=== PATIENT | female | born 1955 | race Caucasian/White ===

== ENCOUNTER 2017-02-15 08:07 | Outpatient (CLI) | payer OTHER, BC | END 2017-02-15 08:08 | disposition home or self-care (01) | DX: K58.9 Irritable bowel syndrome, unspecified (principal); R11.0 Nausea; R19.4 Change in bowel habit; Z90.49 Acquired absence of other specified parts of digestive tract ==

== ENCOUNTER 2017-02-22 18:13 | Outpatient (CLI) | payer OTHER, BC | END 2017-02-22 18:14 | disposition home or self-care (01) | DX: K58.9 Irritable bowel syndrome, unspecified (principal); R11.0 Nausea; R19.4 Change in bowel habit ==

== ENCOUNTER 2017-08-08 08:00 | Outpatient (CLI) | payer OTHER, BC ==
[2017-08-08 13:05] LABS: BASOPHILS % (AUTO) 0.6 %; EOSINOPHILS # (AUTO) 0.3 10^3/uL (0.0-0.7); EOSINOPHILS % (AUTO) 4.1 %; HCT - HEMATOCRIT 38.9 % (37.0-47.0); HGB - HEMOGLOBIN 13.1 g/dL (12.0-16.0); LYMPHOCYTES # (AUTO) 2.4 10^3/uL (1.5-3.5); LYMPHOCYTES % (AUTO) 33.9 %; MEAN CORPUSCULAR HEMOGLOBIN 31.1 pg (27.0-31.0); MEAN CORPUSCULAR HGB CONC 33.7 g/dL (32.0-36.0); MEAN CORPUSCULAR VOLUME 92.4 fL (81.0-99.0); MEAN PLATELET VOLUME 7.8 fL (7.9-10.8); MONOCYTES # (AUTO) 0.5 10^3/uL (0.0-1.0); MONOCYTES % (AUTO) 7.7 %; NEUTROPHILS # (AUTO) 3.8 10^3/uL (1.5-6.6); NEUTROPHILS % (AUTO) 53.7 %; NUCLEATED RED BLOOD CELLS AUTO 0.1 /100WBC; RED BLOOD COUNT 4.21 10^6/uL (4.20-5.40); RED CELL DISTRIBUTION WIDTH 12.8 % (12.0-15.0); UNCORRECTED WHITE BLOOD COUNT 7.1 x10^3/uL; WHITE BLOOD COUNT 7.1 x10^3/uL (4.8-10.8)
[2017-08-08 13:13] LABS: ALBUMIN/GLOBULIN RATIO 1.3 (1.0-2.2); BILIRUBIN,TOTAL 0.5 mg/dL (0.2-1.0); BUN - BLOOD UREA NITROGEN 14 mg/dL (6-20); CALCIUM 9.7 mg/dL (8.5-10.3); CARBON DIOXIDE - CO2 28 mmol/L (21-32); CHLORIDE 103 mmol/L (101-111); CHOL/HDL RATIO 3.2 (<4.4); CHOLESTEROL 224 mg/dL; CREATININE 0.7 mg/dL (0.4-1.0); GFR - MDRD 85 (>89); GLUCOSE 99 mg/dL (70-100); HDL CHOLESTEROL 69 mg/dL; LDL/HDL RATIO 1.6 (<4.4); POTASSIUM 4.3 mmol/L (3.5-5.0); SODIUM 138 mmol/L (135-145); TOTAL PROTEIN 7.4 g/dL (6.7-8.2); TRIGLYCERIDES 221 mg/dL; VLDL CHOLESTEROL 44 mg/dL
[2017-08-08 13:15] LABS: HEMOGLOBIN A1C 0.5 g/dL
== END 2017-08-08 08:01 | disposition home or self-care (01) ==
LOC: LAB.WCP 08:00
PROVIDERS: ATTEND Family Medicine
DX: Z00.00 Encounter for general adult medical examination without abnormal findings (principal); E78.5 Hyperlipidemia, unspecified; E03.9 Hypothyroidism, unspecified; K21.9 Gastro-esophageal reflux disease without esophagitis
CPT/HCPCS: 36415; 80053; 80061; 83036; 84443; 85025

== ENCOUNTER 2017-09-27 09:24 | Outpatient (CLI) | payer OTHER, BC ==
--- NOTE | 2017-09-29 11:35 | Mammography Report ---
DIGITAL SCREENING MAMMOGRAM: 09/27/2017 CLINICAL INDICATION: A 62-year-old, for screening. COMPARISON: 09/2016, 08/2016, 08/2015, 08/2014, 08/2013, 06/2012, 05/2011, 05/2010. TECHNIQUE: Routine CC and MLO projections were obtained of the breasts. FINDINGS: Scattered fibroglandular tissue is present within the breasts. There are no dominant song s, suspicious microcalcifications, or secondary signs of malignancy. In comparison to the previous st udies, there are no significant changes. ASSESSMENT: NO MAMMOGRAPHIC EVIDENCE OF MALIGNANCY. NO SIGNIFICANT INTERVAL CHANGES. RECOMMENDATION: Screening mammography is recommended annually. BIRADS category 1 - negative. STANDARD QUALIFYING STATEMENTS 1. This examination was reviewed with the aid of Computed-Aided Detection (CAD). 2. A negative or benign imaging report should not delay biopsy if clinically suspicious findings are present. Consider surgical consultation if warranted. More than 5% of cancers are not identified by i maging. 3. Dense breasts may obscure an underlying neoplasm. JOB #: [id number] EXT JOB #:[id number]
== END 2017-09-27 09:25 | disposition home or self-care (01) ==
LOC: DI 09:24
PROVIDERS: ATTEND Family Medicine
DX: Z12.31 Encounter for screening mammogram for malignant neoplasm of breast (principal)
CPT/HCPCS: 77067

== ENCOUNTER 2017-12-27 13:56 | Outpatient (CLI) | payer OTHER, BC ==
[2017-12-27 19:01] LABS: BASOPHILS # (AUTO) 0.1 10^3/uL (0.0-0.1); BASOPHILS % (AUTO) 0.7 %; EOSINOPHILS # (AUTO) 0.2 10^3/uL (0.0-0.7); EOSINOPHILS % (AUTO) 2.7 %; HGB - HEMOGLOBIN 12.1 g/dL (12.0-16.0); LYMPHOCYTES # (AUTO) 2.2 10^3/uL (1.5-3.5); LYMPHOCYTES % (AUTO) 28.2 %; MEAN CORPUSCULAR HEMOGLOBIN 30.6 pg (27.0-31.0); MEAN CORPUSCULAR HGB CONC 33.7 g/dL (32.0-36.0); MEAN CORPUSCULAR VOLUME 90.7 fL (81.0-99.0); MEAN PLATELET VOLUME 7.9 fL (7.9-10.8); MONOCYTES # (AUTO) 0.7 10^3/uL (0.0-1.0); NEUTROPHILS # (AUTO) 4.5 10^3/uL (1.5-6.6); NEUTROPHILS % (AUTO) 59.4 %; PLT - PLATELET COUNT 315 10^3/uL (130-450); RED BLOOD COUNT 3.96 10^6/uL (4.20-5.40); RED CELL DISTRIBUTION WIDTH 13.1 % (12.0-15.0); WHITE BLOOD COUNT 7.6 x10^3/uL (4.8-10.8)
[2017-12-27 19:21] LABS: ALBUMIN 3.9 g/dL (3.2-5.5); ALBUMIN/GLOBULIN RATIO 1.3 (1.0-2.2); ALKALINE PHOSPHATASE 54 IU/L (42-121); ALT ALANINE AMINOTRANSFERASE 20 IU/L (10-60); AST ASPARTATE AMINOTRANSFERASE 24 IU/L (10-42); BILIRUBIN,TOTAL 0.3 mg/dL (0.2-1.0); BUN - BLOOD UREA NITROGEN 17 mg/dL (6-20); CALCIUM 9.6 mg/dL (8.5-10.3); CARBON DIOXIDE - CO2 25 mmol/L (21-32); CHLORIDE 102 mmol/L (101-111); CHOL/HDL RATIO 3.4 (<4.4); CHOLESTEROL 222 mg/dL; CREATININE 0.7 mg/dL (0.4-1.0); GFR - MDRD 85 (>89); GLUCOSE 91 mg/dL (70-100); HDL CHOLESTEROL 66 mg/dL; SODIUM 137 mmol/L (135-145)
[2017-12-27 19:48] LABS: LDL CHOLESTEROL,DIRECT 117 mg/dL; LDLD/HDL RATIO 1.8 (<4.4)
== END 2017-12-27 13:57 | disposition home or self-care (01) ==
LOC: LAB.WCP 13:56
PROVIDERS: ATTEND Family Medicine
DX: K58.9 Irritable bowel syndrome, unspecified (principal); K21.9 Gastro-esophageal reflux disease without esophagitis; F33.1 Major depressive disorder, recurrent, moderate; E78.5 Hyperlipidemia, unspecified; E03.9 Hypothyroidism, unspecified
CPT/HCPCS: 36415; 80053; 80061; 83721; 84443; 85025

== ENCOUNTER 2018-04-04 08:09 | Outpatient (CLI) | payer OTHER, BC ==
[2018-04-04 13:24] LABS: ALBUMIN 3.9 g/dL (3.2-5.5); ALBUMIN/GLOBULIN RATIO 1.3 (1.0-2.2); ALKALINE PHOSPHATASE 43 IU/L (42-121); ALT ALANINE AMINOTRANSFERASE 25 IU/L (10-60); AST ASPARTATE AMINOTRANSFERASE 33 IU/L (10-42); BILIRUBIN,TOTAL 0.6 mg/dL (0.2-1.0); BUN - BLOOD UREA NITROGEN 21 mg/dL (6-20); CALCIUM 9.1 mg/dL (8.5-10.3); CARBON DIOXIDE - CO2 26 mmol/L (21-32); CHLORIDE 101 mmol/L (101-111); CHOL/HDL RATIO 3.4 (<4.4); CHOLESTEROL 188 mg/dL; CREATININE 0.8 mg/dL (0.4-1.0); GFR - MDRD 72 (>89); GLUCOSE 98 mg/dL (70-100); HDL CHOLESTEROL 55 mg/dL; LDL CHOLESTEROL,CALCULATED 97 mg/dL; LDL/HDL RATIO 1.8 (<4.4); SODIUM 134 mmol/L (135-145); TOTAL PROTEIN 6.9 g/dL (6.7-8.2); VLDL CHOLESTEROL 36 mg/dL
== END 2018-04-04 08:10 ==
LOC: LAB.WCP 08:09
PROVIDERS: ATTEND Family Medicine
DX: E78.5 Hyperlipidemia, unspecified (principal)
CPT/HCPCS: 36415; 80053; 80061; 83721

== ENCOUNTER 2018-05-04 08:00 | Outpatient (CLI) | payer OTHER, BC | END 2018-05-04 23:59 | disposition home or self-care (01) | LOC: LAB.WCP 08:00 | PROVIDERS: ATTEND Family Medicine | DX: N89.8 Other specified noninflammatory disorders of vagina (principal) | CPT/HCPCS: 87480; 87510; 87660 ==

== ENCOUNTER 2018-10-18 08:00 | Outpatient (CLI) | payer OTHER, BC ==
[2018-10-18 13:37] LABS: ALBUMIN 3.9 g/dL (3.2-5.5); ALBUMIN/GLOBULIN RATIO 1.3 (1.0-2.2); ALKALINE PHOSPHATASE 61 IU/L (42-121); ALT ALANINE AMINOTRANSFERASE 20 IU/L (10-60); AST ASPARTATE AMINOTRANSFERASE 22 IU/L (10-42); BILIRUBIN,TOTAL 0.2 mg/dL (0.2-1.0); BUN - BLOOD UREA NITROGEN 22 mg/dL (6-20); CALCIUM 9.2 mg/dL (8.5-10.3); CARBON DIOXIDE - CO2 28 mmol/L (21-32); CHLORIDE 101 mmol/L (101-111); CHOL/HDL RATIO 3.5 (<4.4); CHOLESTEROL 224 mg/dL; CREATININE 0.8 mg/dL (0.4-1.0); GFR - MDRD 72 (>89); GLUCOSE 92 mg/dL (70-100); HDL CHOLESTEROL 64 mg/dL; LDL CHOLESTEROL,CALCULATED 108 mg/dL; LDL/HDL RATIO 1.7 (<4.4); SODIUM 138 mmol/L (135-145); VLDL CHOLESTEROL 52 mg/dL
== END 2018-10-18 23:59 | disposition home or self-care (01) ==
LOC: LAB.WCP 08:00
PROVIDERS: ATTEND Family Medicine
DX: E78.5 Hyperlipidemia, unspecified (principal); E03.9 Hypothyroidism, unspecified
CPT/HCPCS: 36415; 80053; 80061; 83721; 84443

== ENCOUNTER 2018-11-26 09:45 | Outpatient (CLI) | payer OTHER, BC ==
--- NOTE | 2018-11-27 09:09 | Mammography Report ---
Reason: SCREENING MAMMO Procedure Date: 11/26/2018 Accession Number: [id number] / [id number] Procedure: CONCHA - Screening Mammo w/Jonn CPT Code: FULL RESULT: EXAM: Screening Mammo w/Jonn DATE: 11/26/2018 10:28 AM CLINICAL HISTORY: Screening encounter. History of early menses and history of 15 years of hormone therapy. Family history of breast cancer in a great aunt at unknown age. TECHNIQUE: Bilateral CC and MLO views were obtained. COMPARISON: 09/27/2017 through 08/21/2014. FINDINGS: The breasts demonstrate scattered fibroglandular densities bilaterally. There are typically benign coarse calcifications. No suspicious masses, clustered microcalcifications, or regions of architectural distortion are identified. IMPRESSION: Benign findings RECOMMENDATION: Routine annual screening unless otherwise clinically indicated. BIRADS CATEGORY 2: Benign findings STANDARD QUALIFYING STATEMENTS: 1. This examination was not reviewed with the aid of Computer-Aided Detection (CAD). 2. A negative or benign imaging report should not preclude biopsy if clinically suspicious findings are present. 3. Dense breasts may obscure an underlying neoplasm. 4. This examination was reviewed with the aid of 3D breast imaging (tomosynthesis).
== END 2018-11-26 09:46 | disposition home or self-care (01) ==
LOC: DI 09:45
DX: Z12.31 Encounter for screening mammogram for malignant neoplasm of breast (principal); Z80.3 Family history of malignant neoplasm of breast
CPT/HCPCS: 77063; 77067

== ENCOUNTER 2018-11-26 09:46 | Outpatient (CLI) | payer OTHER, BC ==
--- NOTE | 2018-11-28 08:28 | DEXA Report ---
Reason: POSTMENOPAUSAL STATUS Procedure Date: 11/26/2018 Accession Number: [id number] / [id number] Procedure: DEX - Dexa Spine and/or Hip CPT Code: FULL RESULT: EXAM: Dexa Spine and/or Hip DATE: 11/26/2018 10:41 AM CLINICAL HISTORY: POSTMENOPAUSAL STATUS TECHNIQUE: Dual energy x-ray absorptiometry (DXA) was performed on a [employer] System. Regions measured are the AP Spine, femoral neck, and if needed forearm. COMPARISON: 08/25/2016. In accordance with the International Society for Clinical Densitometry (ISCD) guidelines, data from previous exams may be reanalyzed using current recommendations and techniques. This is done to allow a more accurate basis for comparison with the current study. FINDINGS: The data for the lumbar spine is as follows: BMD (g/cm/cm) T-SCORE Z-SCORE REGION L1 0.992 -1.1 0.1 L2 1.161 -0.3 1.0 L3 1.083 -1.0 0.3 L4 1.094 -0.9 0.4 TOTAL 1.086 -0.8 0.5 NOTE: All evaluable vertebrae are used for classification The data for the hip is as follows: BMD (g/cm/cm) T-SCORE Z-SCORE REGION Neck 0.831 -1.5 -0.2 TOTAL 0.883 -1.0 0.0 NOTE: The femoral neck or total proximal femur, whichever is lowest, is used for classification. DXA RESULTS SUMMARY: Spine SCAN DATE AGE BMD CHANGE VS CHANGE VS PREVIOUS PREVIOUS % 7/26[birth year]2019 [age] 1.086 -0.002 -0.2 09/02/2016 [age] 1.088 * Denotes significant change at the 95% confidence level. Denotes dissimilar scan types or analysis methods. DXA RESULTS SUMMARY: Hip SCAN DATE AGE BMD CHANGE VS CHANGE VS PREVIOUS PREVIOUS % [birth year]26/2018 64.8 0.883 0.036* 4.3* 09/02/2016 61.6 0.847 * Denotes significant change at the 95% confidence level. Denotes dissimilar scan types or analysis methods. IMPRESSION: THE WHO CLASSIFICATION BASED ON THE INTERNATIONAL REFERENCE STANDARD IS OSTEOPENIA. THE FRACTURE RISK IS INCREASED. RECOMMENDATION: Patients with diagnosis of osteoporosis or osteopenia should have regular bone mineral density assessment. For those eligible for Medicare, routine testing is allowed once every 2 years. Testing frequency can be increased for patients who have rapidly progressing disease or for those who are receiving medical therapy to restore bone mass. COMMENT: World Health Organization (WHO) definitions for osteoporosis and osteopenia: NORMAL BMD: T-score at -1.0 or higher, fracture risk is low OSTEOPENIA BMD: T-score between -1.0 and -2.5, fracture risk is increased. OSTEOPOROSIS BMD: T-score at -2.5 or lower, fracture risk is high. National Osteoporosis Foundation recommends: 1. Obtain adequate dietary calcium (at least 1200 mg per day) and vitamin D (400-800 international units per day). 2. Participate, as appropriate, in regular weightbearing and muscle-strengthening exercise. 3. Avoid tobacco use and reduce alcohol and caffeine intake. 4. For more detailed information see the website at www.NOF.org.
== END 2018-11-26 09:47 | disposition home or self-care (01) ==
LOC: DI 09:46
PROVIDERS: ATTEND Family Medicine
DX: M85.88 Other specified disorders of bone density and structure, other site (principal)
CPT/HCPCS: 77080

== ENCOUNTER 2019-01-31 08:28 | Outpatient (CLI) | payer OTHER ==
--- NOTE | 2019-01-31 11:23 | XRAY Report ---
Reason: PAIN MEDIAL L FOOT Procedure Date: 01/31/2019 Accession Number: [id number] / [id number] Procedure: XR - Foot 3 View LT CPT Code: FULL RESULT: EXAM: LEFT FOOT RADIOGRAPHY EXAM DATE: 01/31/2019 08:55 AM. CLINICAL HISTORY: Pain in medial left foot. COMPARISON: FOOT 2 VIEW LT 02/15/2018 2:21 PM. TECHNIQUE: 3 views. FINDINGS: Bones: Normal. No fractures or bone lesions. Joints: Normal. No subluxations. Soft Tissues: Normal. No soft tissue swelling. IMPRESSION: No fracture or dislocation is detected. RADIA
== END 2019-01-31 08:29 | disposition home or self-care (01) ==
LOC: DI 08:28
PROVIDERS: ATTEND Podiatrist
DX: M79.672 Pain in left foot (principal)

== ENCOUNTER 2019-04-24 08:00 | Outpatient (CLI) | payer OTHER ==
[2019-04-24 18:53] LABS: CREATININE 0.8 mg/dL (0.4-1.0)
== END 2019-04-24 08:01 | disposition home or self-care (01) ==
LOC: LAB.WCP 08:00
PROVIDERS: ATTEND Anesthesiology
DX: Z01.812 Encounter for preprocedural laboratory examination (principal)
CPT/HCPCS: 36415; 82565; 85014

== ENCOUNTER 2019-05-10 18:44 | Emergency (ER) | payer OTHER ==
[2019-05-10 18:52] VITALS: BP 127/74
[2019-05-10] MEDS ORDERED: FLUCONAZOLE 100 MG TABLET PO STA (19:09)
--- NOTE | 2019-05-10 19:12 | ED Physician Documentation ---
History of Present Illness - Stated complaint Stated Complaint: RASH - Chief complaint Chief Complaint: General - History obtained from History obtained from: Patient - History of Present Illness Timing: Other (She is about a week out from a laparoscopic Lorenzo fundoplication and has increasing redness and severe itching around her port sites on the abdominal wall. This is despite taking a variety of topical corticosteroids and nystatin.) Review of Systems Constitutional: reports: Reviewed and negative Throat: reports: Reviewed and negative Cardiac: reports: Reviewed and negative PD PAST MEDICAL HISTORY - Past Medical History Cardiovascular: Hypertension, High cholesterol Psych: Anxiety - Past Surgical History Past Surgical History: Yes Ortho: Hip replacement - Present Medications Home Medications: Ambulatory Orders Medication Instructions Recorded Confirmed Acetaminophen [Tylenol Extra 1,000 mg PO TID 09/14/15 09/14/15 Strength] Ascorbic Acid [Vitamin C] 500 mg PO DAILY 09/14/15 09/14/15 Calcium Carb/D3/Magnesium/Zinc 1 tab PO DAILY 09/14/15 09/14/15 [Fidencio Mag Zinc + D3 Tablet] Cholecalciferol (Vitamin D3) 5,000 unit PO DAILY 09/14/15 09/14/15 [Vitamin D3] Citalopram Hydrobromide [Celexa] 15 mg PO DAILY 09/14/15 09/14/15 Estradiol 1 mg PO DAILY 09/14/15 09/14/15 Iron Bg,Ps/Folic/B,C No.12/Suc 1 tab PO DAILY 09/14/15 09/14/15 [Irospan 24/6 Tablet] L.acidoph,Paracasei, B.lactis 1 each PO 09/14/15 09/14/15 [Probiotic] Lovastatin 40 mg PO DAILY 09/14/15 09/14/15 Magnesium Glycinate [Mag Glycinate] 1 tab PO DAILY 09/14/15 09/14/15 Methylphenidate [Ritalin] 2.5 mg PO DAILY 09/14/15 09/14/15 [place]-3 Fatty Acids/Fish Oil 1 tape PO DAILY 09/14/15 09/14/15 [[place] 3 1,000 mg Softgel] Prazosin [Minipress] 1 mg PO QPM 09/14/15 09/14/15 QUEtiapine [SEROquel] 50 mg PO DAILY 09/14/15 09/14/15 predniSONE [Deltasone] 20 mg PO [id number] #21 tab 05/10/19 - Allergies Allergies/Adverse Reactions: Allergies Allergy/AdvReac Type Severity Reaction Status Date / Time Penicillins Allergy Rash Verified 09/13/15 23:43 - Social History Does the pt smoke?: No Smoking Status: Never smoker Does the pt drink ETOH?: No Does the pt have substance abuse?: No - Immunizations Immunizations are current?: Yes PD ED PE NORMAL - Vitals Vital signs reviewed: Yes - General General: Alert and oriented X 3, No acute distress - Abdomen Abdomen: Non tender, Other (There is redness around each port site with satellite lesions more consistent with either a fungal infection or contact dermatitis. She has already removed the Steri-Strips. There are some also some satellite lesions under the breast especially the left.) Results - Vitals Vitals: Vital Signs - 24 hr 05/10/19 18:47 Temperature 36.5 C Heart Rate 100 Respiratory 16 Rate Blood Pressure 127/74 O2 Saturation 100 Oxygen O2 Source Room air Departure - Departure Disposition: 01 Home, Self Care Clinical Impression: Dermatitis Condition: Good Record reviewed to determine appropriate education?: Yes Health Concerns: rash Plan of Treatment: as below Care Goals: improvement Assessment: as above Instructions: ED Allergic Reaction General Other Prescriptions: predniSONE [Deltasone] 20 mg PO [id number] #21 tab Comments: The fluconazole she received orally here should help if this is fungal which it may well be. The oral steroids that you are to start tomorrow to decrease any insomnia tonight should help with the inflammatory reaction. Return if worse.
== END 2019-05-10 19:19 | disposition home or self-care (01) ==
LOC: ED 18:44
DX: L30.9 Dermatitis, unspecified (principal); I10 Essential (primary) hypertension
CPT/HCPCS: 99283; A9270

== ENCOUNTER 2019-07-22 08:00 | Outpatient (CLI) | payer OTHER | END 2019-07-22 23:59 | disposition home or self-care (01) | LOC: LAB.R 08:00 | PROVIDERS: ATTEND Physician Assistant Medical | DX: R10.9 Unspecified abdominal pain (principal) | CPT/HCPCS: 87086 ==

== ENCOUNTER 2019-07-22 14:57 | Outpatient (CLI) | payer OTHER ==
--- NOTE | 2019-07-22 16:07 | CT Report ---
Reason: HEMATURIA Procedure Date: 07/22/2019 Accession Number: [id number] / [id number] Procedure: CT - Abdomen/Pelvis WO CPT Code: FULL RESULT: EXAM: CT ABDOMEN AND PELVIS (CT KUB) EXAM DATE: 07/22/2019 03:07 PM. CLINICAL HISTORY: HEMATURIA. COMPARISONS: None. TECHNIQUE: Routine axial helical CT imaging was performed through the abdomen and pelvis without IV contrast. Reconstructions: Coronal and sagittal. In accordance with CT protocol optimization, one or more of the following dose reduction techniques were utilized for this exam: automated exposure control, adjustment of mA and/or KV based on patient size, or use of iterative reconstructive technique. FINDINGS: Lung Bases: A small hiatal hernia. Right Kidney/Ureter: No stones, hydronephrosis, or hydroureter. No perinephric fat stranding. Left Kidney/Ureter: No stones, hydronephrosis, or hydroureter. No perinephric fat stranding. Other Solid Organs: Noncontrast images of the solid organs are grossly unremarkable. Gallbladder/Bile Ducts: Status post cholecystectomy. Peritoneal Cavity: No free fluid, free air or brenton adenopathy. Bowel is grossly unremarkable. Pelvic Organs: No bladder stones or wall thickening. Noncontrast images of the visualized pelvic organs are unremarkable. Vasculature: Unremarkable. Other: None. IMPRESSION: No urinary tract stones or obstruction. Small hiatal hernia. Status post cholecystectomy. No other significant abnormality. RADIA The call report notification system was initiated by Dr. Rebecca Mcginnis at 04:05 PM on 07/22/2019. ADDENDUM: 07/22/19 16:37 The above call report findings were discussed with RN for dr Bolaños by Dr. Rebecca Mcginnis at 04:37 PM on 07/22/2019.
== END 2019-07-22 14:58 | disposition home or self-care (01) ==
LOC: DI 14:57
PROVIDERS: ATTEND Physician Assistant Medical
DX: R31.9 Hematuria, unspecified (principal); K44.9 Diaphragmatic hernia without obstruction or gangrene; Z90.49 Acquired absence of other specified parts of digestive tract; R10.9 Unspecified abdominal pain
CPT/HCPCS: 74176; 87086

== ENCOUNTER 2019-09-11 12:00 | Outpatient (CLI) | payer OTHER ==
[2019-09-11 20:09] LABS: BILIRUBIN,URINE NEGATIVE (NEGATIVE); GLUCOSE, URINE (UA) NEGATIVE (NEGATIVE); KETONES,URINE (UA) NEGATIVE (NEGATIVE); LEUKOCYTE ESTERASE, URINE NEGATIVE (NEGATIVE); NITRITE,URINE NEGATIVE (NEGATIVE); OCCULT BLOOD,URINE NEGATIVE (NEGATIVE); PROTEIN,URINE NEGATIVE (NEGATIVE); UROBILINOGEN,URINE 0.2 (NORMAL) E.U./dL (NORMAL)
[2019-09-11 20:17] LABS: CLARITY,URINE CLEAR (CLEAR)
== END 2019-09-11 23:59 | disposition home or self-care (01) ==
LOC: LAB.R 12:00
PROVIDERS: ATTEND Physician Assistant Medical
DX: R31.9 Hematuria, unspecified (principal)
CPT/HCPCS: 81001; 81003; 87086

== ENCOUNTER 2019-10-22 08:00 | Outpatient (CLI) | payer OTHER ==
[2019-10-22 14:41] LABS: ALBUMIN 3.8 g/dL (3.2-5.5); ALBUMIN/GLOBULIN RATIO 1.2 (1.0-2.2); ALKALINE PHOSPHATASE 50 IU/L (42-121); ALT ALANINE AMINOTRANSFERASE 23 IU/L (10-60); AST ASPARTATE AMINOTRANSFERASE 30 IU/L (10-42); BILIRUBIN,TOTAL 0.6 mg/dL (0.2-1.0); BILIRUBIN,URINE NEGATIVE (NEGATIVE); BUN - BLOOD UREA NITROGEN 17 mg/dL (6-20); CALCIUM 9.2 mg/dL (8.5-10.3); CARBON DIOXIDE - CO2 24 mmol/L (21-32); CHLORIDE 104 mmol/L (101-111); CHOL/HDL RATIO 3.1 (<4.4); CHOLESTEROL 195 mg/dL; CLARITY,URINE CLEAR (CLEAR); CREATININE 0.8 mg/dL (0.4-1.0); GFR - MDRD 72 (>89); GLUCOSE 97 mg/dL (70-100); GLUCOSE, URINE (UA) NEGATIVE (NEGATIVE); HDL CHOLESTEROL 63 mg/dL; KETONES,URINE (UA) NEGATIVE (NEGATIVE); LDL CHOLESTEROL,CALCULATED 81 mg/dL; LDL/HDL RATIO 1.3 (<4.4); LEUKOCYTE ESTERASE, URINE NEGATIVE (NEGATIVE); NITRITE,URINE NEGATIVE (NEGATIVE); OCCULT BLOOD,URINE TRACE-INTA (NEGATIVE); PROTEIN,URINE NEGATIVE (NEGATIVE); SODIUM 139 mmol/L (135-145); TOTAL PROTEIN 7.1 g/dL (6.7-8.2); UROBILINOGEN,URINE 0.2 (NORMAL) E.U./dL (NORMAL); VLDL CHOLESTEROL 51 mg/dL
[2019-10-22 15:07] LABS: BASOPHILS # (AUTO) 0.1 10^3/uL (0.0-0.1); BASOPHILS % (AUTO) 0.9 %; EOSINOPHILS # (AUTO) 0.6 10^3/uL (0.0-0.7); EOSINOPHILS % (AUTO) 7.5 %; HGB - HEMOGLOBIN 11.8 g/dL (12.0-16.0); LYMPHOCYTES # (AUTO) 2.6 10^3/uL (1.5-3.5); LYMPHOCYTES % (AUTO) 31.8 %; MEAN CORPUSCULAR HEMOGLOBIN 30.4 pg (27.0-31.0); MEAN CORPUSCULAR HGB CONC 32.4 g/dL (32.0-36.0); MEAN CORPUSCULAR VOLUME 93.8 fL (81.0-99.0); MEAN PLATELET VOLUME 9.6 fL (7.9-10.8); MONOCYTES # (AUTO) 0.7 10^3/uL (0.0-1.0); MONOCYTES % (AUTO) 8.2 %; NEUTROPHILS # (AUTO) 4.2 10^3/uL (1.5-6.6); NEUTROPHILS % (AUTO) 50.6 %; PLT - PLATELET COUNT 325 10^3/uL (130-450); RED BLOOD COUNT 3.88 10^6/uL (4.20-5.40); RED CELL DISTRIBUTION WIDTH 13.1 % (12.0-15.0); WHITE BLOOD COUNT 8.2 x10^3/uL (4.8-10.8)
== END 2019-10-22 23:59 | disposition home or self-care (01) ==
LOC: LAB.WCP 08:00
PROVIDERS: ATTEND Physician Assistant Medical
DX: E78.5 Hyperlipidemia, unspecified (principal); R31.9 Hematuria, unspecified; K21.9 Gastro-esophageal reflux disease without esophagitis
CPT/HCPCS: 36415; 80053; 80061; 81001; 81003; 83721; 85025; 87086

== ENCOUNTER 2020-01-10 16:32 | Outpatient (CLI) | payer OTHER ==
--- NOTE | 2020-01-13 09:04 | Mammography Report ---
Reason: ROUTINE MAMMO Procedure Date: 01/10/2020 Accession Number: [id number] / [id number] Procedure: CONCHA - Screening Mammo w/Jonn CPT Code: Final Report FULL RESULT: EXAM: Screening Mammo w/Jonn DATE: 01/10/2020 5:00 PM CLINICAL HISTORY: Screening encounter. TECHNIQUE: (B) - Bilateral CC and MLO views were obtained. COMPARISON: 11/26/2018 through 05/17/2010. PARENCHYMAL PATTERN: (D) - The breast(s) demonstrate(s) heterogeneously dense fibroglandular parenchyma. FINDINGS: There are no suspicious masses, calcifications, or areas of distortion. IMPRESSION: Negative examination. BI-RADS category 1. RECOMMENDATION: (ANNUAL) - Recommend routine annual screening mammography. BI-RADS CATEGORY: (1) - Negative. STANDARD QUALIFYING STATEMENTS: 1. This examination was not reviewed with the aid of Computer-Aided Detection (CAD). 2. A negative or benign imaging report should not preclude biopsy if clinically suspicious findings are present. 3. Dense breasts may obscure an underlying neoplasm. 4. This examination was reviewed with the aid of 3D breast imaging (tomosynthesis).
== END 2020-01-10 16:33 | disposition home or self-care (01) ==
LOC: DI 16:32
DX: Z12.31 Encounter for screening mammogram for malignant neoplasm of breast (principal)
CPT/HCPCS: 77063; 77067

== ENCOUNTER 2020-07-02 09:40 | Outpatient (CLI) | payer OTHER ==
--- NOTE | 2020-07-02 09:53 | XRAY Report ---
PROCEDURE: Shoulder 3 View RT INDICATIONS: RIGHT SHOULDER IMPINGEMENT SYNDROME TECHNIQUE: 3 views of the shoulder were acquired. COMPARISON: None. FINDINGS: Bones: No fractures or dislocations but there is moderate AC joint osteoarthritis. No suspicious sven ny lesions. Visualized ribs appear intact. Soft tissues: No suspicious soft tissue calcifications. IMPRESSION: Moderate AC joint osteoarthritis to the degree that impingement against the supraspinatu s portion of the rotator cuff may be present, from both osseous and fibrous hypertrophy. MR scanning could more accurately assess for degree of impingement if clinically warranted. Reviewed by: Alan Potter MD on 07/02/2020 9:51 AM PDT Approved by: Alan Potter MD on 07/02/2020 9:51 AM PDT Station ID: [id number]
== END 2020-07-02 23:59 | disposition home or self-care (01) ==
LOC: DI.WCP 09:40
PROVIDERS: ATTEND Physician Assistant Medical
DX: M19.011 Primary osteoarthritis, right shoulder (principal)

== ENCOUNTER 2020-07-24 17:08 | Outpatient (CLI) | payer OTHER ==
--- NOTE | 2020-07-27 09:45 | MRI Report ---
PROCEDURE: Shoulder RT W/O INDICATIONS: IMPINGEMENT SYNDROME OF RIGHT SHOULDER TECHNIQUE: Noncontrast oblique coronal T2 fast spin echo with fat saturation, oblique sagittal T1 spin echo and T2 fast spin echo with fat saturation, axial T1 spin echo and T2 fast spin echo with fat saturation t hrough the shoulder. COMPARISON: None. FINDINGS: Image quality: Excellent. Rotator cuff: There is tendinosis and low to moderate grade articular and bursal surface partial-thic kness tear involving distal supraspinatus at its insertion on humeral head extending to musculotendin ous junction with full-thickness perforation involving anterior to mid fibers of distal supraspinatus at humeral head with up to 1.7 cm medial retraction of torn tendon fibers and a fluid-filled gap roque sures 1.7 cm in AP dimension. Distal infraspinatus is intact. Tendinosis and low-grade intrasubstance partial thickness tear involving distal subscapularis is seen. There is mild to moderate supraspinat us muscle atrophy seen on sagittal images. Bones and bursae: No bone marrow contusions or fractures. Moderate acromioclavicular joint osteoarth ritis is seen. Mild glenohumeral joint osteoarthritis is also noted. There is moderate amount of join t fluid and subacromial subdeltoid bursal fluid. No gross intra-articular loose body. Capsule and soft tissues: In the absence of intra-articular contrast, the labrum and glenohumeral li gaments appear intact. The long head of the biceps tendinosis is seen. The rotator interval appears normal, without fibrosis. The coracohumeral ligament is normal in thickness. IMPRESSION: 1. Full-thickness tear involving anterior to mid fibers of distal supraspinatus at its insertion on h umeral head with up to 1.7 cm medial retraction of torn tendon fibers and a fluid-filled gap measures 1.7 cm in AP dimension. Tendinosis and low to moderate grade articular and bursal surface partial-th ickness tear involving mid to posterior fibers of distal supraspinatus. Distal subscapularis tendinos is and low-grade intrasubstance partial thickness tear. Mild to moderate supraspinatus muscle atrophy . 2. Moderate acromioclavicular joint osteoarthritis and mild glenohumeral joint osteoarthritis. 3. No evidence of focal labral tear. 4. Proximal intra-articular portion of long head of biceps tendinosis. Reviewed by: Edgar Loja MD on 07/27/2020 9:44 AM PDT Approved by: Edgar Loja MD on 07/27/2020 9:44 AM PDT Station ID: [id number]
== END 2020-07-24 17:09 | disposition home or self-care (01) ==
LOC: DI 17:08
PROVIDERS: ATTEND Physician Assistant Medical
DX: M75.41 Impingement syndrome of right shoulder (principal); M19.011 Primary osteoarthritis, right shoulder; M75.81 Other shoulder lesions, right shoulder; M75.101 Unspecified rotator cuff tear or rupture of right shoulder, not specified as traumatic

== ENCOUNTER 2020-09-24 08:00 | Outpatient (CLI) | payer OTHER ==
[2020-09-24 12:17] LABS: ALBUMIN/GLOBULIN RATIO 1.2 (1.0-2.2); ALKALINE PHOSPHATASE 63 IU/L (42-121); ALT ALANINE AMINOTRANSFERASE 23 IU/L (10-60); AST ASPARTATE AMINOTRANSFERASE 24 IU/L (10-42); BILIRUBIN,TOTAL 0.6 mg/dL (0.2-1.0); BUN - BLOOD UREA NITROGEN 14 mg/dL (6-20); CALCIUM 9.9 mg/dL (8.5-10.3); CARBON DIOXIDE - CO2 27 mmol/L (21-32); CHLORIDE 104 mmol/L (101-111); CHOL/HDL RATIO 3.7 (<4.4); CHOLESTEROL 201 mg/dL; CREATININE 0.9 mg/dL (0.4-1.0); GLUCOSE 99 mg/dL (70-100); HDL CHOLESTEROL 54 mg/dL; LDL CHOLESTEROL,CALCULATED 96 mg/dL; LDL/HDL RATIO 1.8 (<4.4); SODIUM 140 mmol/L (135-145); TOTAL PROTEIN 7.3 g/dL (6.7-8.2); VLDL CHOLESTEROL 51 mg/dL
== END 2020-09-24 08:01 | disposition home or self-care (01) ==
LOC: LAB.WCP 08:00
PROVIDERS: ATTEND Physician Assistant Medical
DX: E78.5 Hyperlipidemia, unspecified (principal)
CPT/HCPCS: 36415; 80053; 80061; 83721

== ENCOUNTER 2020-12-17 08:27 | Outpatient (CLI) | payer OTHER ==
--- NOTE | 2020-12-17 10:41 | DEXA Report ---
PROCEDURE: Dexa Spine and/or Hip INDICATIONS: POST MENOPAUSAL STATUS TECHNIQUE: Dual energy x-ray absorptiometry (DXA) was performed on a [employer] System. Regions measur ed are the AP Spine, femoral neck, and if needed forearm. COMPARISON: 11/26/2018. FINDINGS: Lumbar Spine: Bone Mineral Density 1.031 g/cm/cm,T score -1.2, osteopenia Left Femoral Neck: Bone Mineral Density 0.889 g/cm/cm, T score -0.9, normal bone density (T score greater or equal to -1.0: NORMAL) (T score from -1.1 to -2.4: OSTEOPENIA) (T score less than or equal to -2.5 to: OSTEOPOROSIS) Impression: OSTEOPENIA. Patient is at increased risk for fracture. Patients with diagnosis of osteoporosis or osteopenia should have regular bone mineral density assess ment. For those eligible for Medicare, routine testing is allowed once every 2 years. Testing frequ ency can be increased for patients who have rapidly progressing disease or for those who are receivin g medical therapy to restore bone mass. Reviewed by: Hernandez Cordero MD on 12/17/2020 10:40 AM PST Approved by: Hernandez Cordero MD on 12/17/2020 10:40 AM PST Station ID: [id number]
== END 2020-12-17 08:28 | disposition home or self-care (01) ==
LOC: DI 08:27
PROVIDERS: ATTEND Physician Assistant Medical
DX: M85.89 Other specified disorders of bone density and structure, multiple sites (principal); Z78.0 Asymptomatic menopausal state

== ENCOUNTER 2021-03-24 10:49 | Outpatient (CLI) | payer OTHER ==
--- NOTE | 2021-03-24 11:10 | XRAY Report ---
PROCEDURE: Shoulder 2 View RT INDICATIONS: R SHOULDER PX TECHNIQUE: 2 views of the shoulder were acquired. COMPARISON: None. FINDINGS: Bones: No fractures or dislocations. No suspicious bony lesions. Visualized ribs appear intact. M oderate articular osteophyte formation at the acromial clinically joint. Mild periarticular osteophyt e formation at the glenohumeral joint. Soft tissues: No suspicious soft tissue calcifications. IMPRESSION: Osteoarthritis. No acute fracture. No osseous lesion. If symptoms and/or clinical suspic ion for pathology continue, further assessment with repeat plain films, or advanced imaging (e.g., CT , MRI, or bone scan) is recommended for further assessment. Reviewed by: Tanvir Gonzales MD on 03/24/2021 11:09 AM PDT Approved by: Tanvir Gonzales MD on 03/24/2021 11:09 AM PDT Station ID: [id number]
== END 2021-03-24 23:59 | disposition home or self-care (01) ==
LOC: DI.N 10:49
PROVIDERS: ATTEND Family Medicine
DX: M19.011 Primary osteoarthritis, right shoulder (principal)

== ENCOUNTER 2021-03-30 08:00 | Outpatient (CLI) | payer OTHER ==
[2021-03-30 12:15] LABS: BASOPHILS % (AUTO) 0.4 %; EOSINOPHILS # (AUTO) 0.4 10^3/uL (0.0-0.7); EOSINOPHILS % (AUTO) 4.6 %; HCT - HEMATOCRIT 36.1 % (37.0-47.0); HGB - HEMOGLOBIN 11.7 g/dL (12.0-16.0); LYMPHOCYTES # (AUTO) 3.3 10^3/uL (1.5-3.5); LYMPHOCYTES % (AUTO) 36.7 %; MEAN CORPUSCULAR HEMOGLOBIN 30.2 pg (27.0-31.0); MEAN CORPUSCULAR HGB CONC 32.4 g/dL (32.0-36.0); MEAN PLATELET VOLUME 9.8 fL (7.9-10.8); MONOCYTES # (AUTO) 0.7 10^3/uL (0.0-1.0); MONOCYTES % (AUTO) 7.7 %; NEUTROPHILS # (AUTO) 4.5 10^3/uL (1.5-6.6); PLT - PLATELET COUNT 311 10^3/uL (130-450); RED BLOOD COUNT 3.88 10^6/uL (4.20-5.40); RED CELL DISTRIBUTION WIDTH 13.3 % (12.0-15.0)
[2021-03-30 12:26] LABS: ALBUMIN 4.3 g/dL (3.2-5.5); ALBUMIN/GLOBULIN RATIO 1.4 (1.0-2.2); BILIRUBIN,TOTAL 0.6 mg/dL (0.2-1.0); CALCIUM 9.9 mg/dL (8.5-10.3); CREATININE 0.9 mg/dL (0.4-1.0); TOTAL PROTEIN 7.4 g/dL (6.7-8.2)
[2021-03-30 12:42] LABS: THYROID STIMULATING HORMONE 2.6 uIU/mL (0.34-5.60)
== END 2021-03-30 23:59 | disposition home or self-care (01) ==
LOC: LAB.WCP 08:00
PROVIDERS: ATTEND Physician Assistant Medical
DX: E55.9 Vitamin D deficiency, unspecified (principal); J30.9 Allergic rhinitis, unspecified; E78.5 Hyperlipidemia, unspecified; R53.83 Other fatigue
CPT/HCPCS: 36415; 80053; 82306; 84443; 85025

== ENCOUNTER 2021-04-20 07:22 | Outpatient (CLI) | payer OTHER ==
--- NOTE | 2021-04-20 10:41 | MRI Report ---
PROCEDURE: Shoulder RT W/O INDICATIONS: RIGHT SHOULDER STRAIN OF THE ROTATOR CUFF TECHNIQUE: Noncontrast oblique coronal T2 fast spin echo with fat saturation, oblique sagittal T1 spin echo and T2 fast spin echo with fat saturation, axial T1 spin echo and T2 fast spin echo with fat saturation t hrough the shoulder. COMPARISON: Shoulder radiograph dated 03/24/2021 and previous shoulder MRI dated 07/24/2020. FINDINGS: Image quality: Excellent. Rotator cuff: Tendinosis and moderate grade articular and bursal surface partial-thickness tear invol ving distal supraspinatus at its insertion on humeral head is seen extending to musculotendinous junc tion. Previously described full-thickness rupture involving anterior fibers of distal supraspinatus a t its insertion on humeral head is less well seen, which may represent interval development of fibrot ic scarring. Distal infraspinatus and subscapularis tendinosis is also seen. No new full-thickness ro tator cuff tendon rupture. Moderate supraspinatus muscle atrophy is seen on sagittal images. Bones and bursae: No bone marrow contusions or fractures. There is moderate acromioclavicular joint osteoarthritis with downward osteophyte formation depressing on musculotendinous junction of supraspi natus. Moderate amount of joint effusion or subacromial subdeltoid bursal fluid is seen, no gross int ra-articular loose body. Capsule and soft tissues: In the absence of intra-articular contrast, the labrum and glenohumeral li gaments appear intact. The long head of the biceps tendinosis and low-grade partial-thickness tear i s seen. The rotator interval appears normal, without fibrosis. The coracohumeral ligament is normal in thickness. IMPRESSION: 1. Tendinosis and moderate grade articular and bursal surface partial-thickness tear involving distal supraspinatus extending to musculotendinous junction. Previously described full-thickness rupture in volving anterior to mid fibers of distal supraspinatus at its insertion on humeral head is less well seen on the current study likely represent interval development of fibrotic scarring in this region. Distal infraspinatus and subscapularis tendinosis. No new full-thickness rotator cuff tendon rupture. Moderate supraspinatus muscle atrophy. 2. Moderate acromioclavicular joint osteoarthritis. Moderate amount of joint fluid and subacromial pinzon bdeltoid bursal fluid. 3. No gross focal labral tear. 4. Tendinosis and low-grade intrasubstance partial thickness tear involving proximal intra-articular portion of long head of biceps. Reviewed by: Edgar Loja MD on 04/20/2021 10:40 AM PDT Approved by: Edgar Loja MD on 04/20/2021 10:40 AM PDT Station ID: [id number]
== END 2021-04-20 07:23 | disposition home or self-care (01) ==
LOC: DI 07:22
PROVIDERS: ATTEND Orthopaedic Surgery
DX: M75.111 Incomplete rotator cuff tear or rupture of right shoulder, not specified as traumatic (principal); M19.011 Primary osteoarthritis, right shoulder; S46.111A Strain of muscle, fascia and tendon of long head of biceps, right arm, initial encounter

== ENCOUNTER 2021-07-29 11:45 | Outpatient (CLI) | payer OTHER ==
[2021-07-29 18:19] LABS: H. PYLORIS ANTIGEN STL NEGATIVE (Negative)
== END 2021-07-29 23:59 | disposition home or self-care (01) ==
LOC: LAB.WCP 11:45
PROVIDERS: ATTEND Physician Assistant Medical
DX: R19.7 Diarrhea, unspecified (principal)
CPT/HCPCS: 81599; 83993; 87045; 87177; 87209; 87329; 87338; 87427; 87449; 87493

== ENCOUNTER 2021-08-26 14:16 | Outpatient (CLI) | payer OTHER ==
[2021-08-26] MEDS ORDERED: IOVERSOL 320 50 ML VIAL ONE (14:31)
[2021-08-26] MEDS ORDERED: IOVERSOL 320 100 ML VIAL IVP ONE ×2 (14:31→16:06)
[2021-08-26 15:22] LABS: ALBUMIN 4.4 g/dL (3.2-5.5); ALBUMIN/GLOBULIN RATIO 1.4 (1.0-2.2); BILIRUBIN,TOTAL 0.5 mg/dL (0.2-1.0); CALCIUM 9.5 mg/dL (8.5-10.3); CREATININE 0.7 mg/dL (0.4-1.0); POTASSIUM 3.7 mmol/L (3.5-5.0); TOTAL PROTEIN 7.5 g/dL (6.7-8.2)
[2021-08-26 15:24] LABS: BASOPHILS # (AUTO) 0.1 10^3/uL (0.0-0.1); BASOPHILS % (AUTO) 0.6 %; EOSINOPHILS # (AUTO) 0.4 10^3/uL (0.0-0.7); EOSINOPHILS % (AUTO) 4.5 %; HCT - HEMATOCRIT 37.3 % (37.0-47.0); HGB - HEMOGLOBIN 12.4 g/dL (12.0-16.0); LYMPHOCYTES % (AUTO) 31.2 %; MEAN CORPUSCULAR HEMOGLOBIN 30.5 pg (27.0-31.0); MEAN CORPUSCULAR HGB CONC 33.2 g/dL (32.0-36.0); MEAN CORPUSCULAR VOLUME 91.6 fL (81.0-99.0); MEAN PLATELET VOLUME 9.3 fL (7.9-10.8); MONOCYTES # (AUTO) 0.9 10^3/uL (0.0-1.0); MONOCYTES % (AUTO) 8.9 %; NEUTROPHILS # (AUTO) 5.3 10^3/uL (1.5-6.6); NEUTROPHILS % (AUTO) 54.2 %; PLT - PLATELET COUNT 329 10^3/uL (130-450); RED BLOOD COUNT 4.07 10^6/uL (4.20-5.40); RED CELL DISTRIBUTION WIDTH 12.7 % (12.0-15.0); WHITE BLOOD COUNT 9.7 x10^3/uL (4.8-10.8)
[2021-08-26] MEDS ORDERED: IOVERSOL 320 50 ML VIAL PO ONE (16:07)
--- NOTE | 2021-08-26 16:13 | CT Report ---
PROCEDURE: Abdomen/Pelvis W INDICATIONS: LEFT LOWER QUAD PAIN CONTRAST: IV CONTRAST: Optiray 320 ml: 100 PO CONTRAST: Optiray 320 ml100 TECHNIQUE: After the administration of intravenous contrast, 5 mm thick sections acquired from the diaphragms to the symphysis. 5 mm thick coronal and sagittal reformats were acquired. For radiation dose reducti on, the following was used: automated exposure control, adjustment of mA and/or kV according to elvi ent size. COMPARISON: CT KUB dated 07/22/2019 FINDINGS: Image quality: Excellent. ABDOMEN: Lung bases: Lung bases are clear. Heart size is normal. Minimal hiatal hernia. Solid organs: Liver and spleen are normal in size and enhancement. Mild hepatic steatosis. Gallblad silvana is surgically absent Biliary system is non dilated. Pancreas enhances normally. No adrenal nod ules. Kidneys demonstrate normal size and enhancement, without hydronephrosis. Peritoneum and bowel: Bowel loops demonstrate normal wall thickness and caliber. No free fluid or a ir. Nodes and vessels: No retroperitoneal or mesenteric adenopathy by size criteria. Aorta and inferior vena cava are normal in size. Miscellaneous: No ventral hernias. PELVIS: Genitourinary: Bladder wall thickness is normal. Miscellaneous: No inguinal hernias or adenopathy. Uterus is surgically absent. Bones: No suspicious bony lesions. No vertebral body compression fractures. IMPRESSION: 1. No evidence of acute abdominal process. No findings which explain left lower quadrant pain symptom s. 2. Small hiatal hernia. Reviewed by: Jasvir Cantu MD on 08/26/2021 4:11 PM PDT Approved by: Jasvir Cantu MD on 08/26/2021 4:11 PM PDT Station ID: [id number]
== END 2021-08-26 14:17 | disposition home or self-care (01) ==
LOC: LAB 14:16
PROVIDERS: ATTEND Physician Assistant Medical
DX: R10.32 Left lower quadrant pain (principal); K44.9 Diaphragmatic hernia without obstruction or gangrene
CPT/HCPCS: 36415; 74177; 80053; 83690; 85025; Q9967

== ENCOUNTER 2021-10-07 13:06 | Outpatient (CLI) | payer OTHER ==
--- NOTE | 2021-10-08 10:18 | Mammography Report ---
BILATERAL DIGITAL SCREENING MAMMOGRAM 3D/2D: 10/07/2021 CLINICAL: Routine screening. Comparison is made to exams dated: 01/10/2020 mammogram, 11/26/2018 mammogram, 09/27/2017 mammogram, mammogram, 09/02/2016 mammogram, and 08/24/2015 mammogram - [facility]. T here are scattered fibroglandular elements in both breasts. No significant masses, calcifications, or other findings are seen in either breast. There has been no significant interval change. IMPRESSION: NEGATIVE There is no mammographic evidence of malignancy. A 1 year screening mammogram is recommended. This exam was interpreted at Station ID: [id number]. NOTE: For mammograms, a report in lay terms will be sent to the patient. Approximately 15% of breast malignancies will not be visualized mammographically. In the management of a palpable breast mass, a negative mammogram must not discourage biopsy of a clinically suspicious lesion. Electronically Signed By: Mika Ledezma M.D. ddp/penrad:10/07/2021 14:04:09 ACR BI-RADS Category 1: Negative 3341F PARENCHYMAL PATTERN: (A) - The breast(s) demonstrate(s) scattered fibroglandular densities. BI-RADS CATEGORY: (1) - 1 RECOMMENDATION: (ANNUAL) - Recommend routine annual screening mammography. [id number] 1 year screening LATERALITY: (B)
== END 2021-10-07 13:07 | disposition home or self-care (01) ==
LOC: DI 13:06
DX: Z12.31 Encounter for screening mammogram for malignant neoplasm of breast (principal)

== ENCOUNTER 2022-09-09 07:45 | Outpatient (CLI) | payer OTHER ==
[2022-09-09 13:05] LABS: THYROID STIMULATING HORMONE 2.02 uIU/mL (0.34-5.60)
[2022-09-09 13:08] LABS: FERRITIN 76.4 ng/mL (11.0-306.8)
== END 2022-09-09 07:46 | disposition home or self-care (01) ==
LOC: LAB.N 07:45
PROVIDERS: ATTEND Physician Assistant Medical
DX: R53.83 Other fatigue (principal)
CPT/HCPCS: 36415; 82306; 82607; 82728; 84443

== ENCOUNTER 2022-09-17 08:46 | Outpatient (CLI) | payer OTHER ==
[2022-09-17 09:39] LABS: ALBUMIN 4.3 g/dL (3.2-5.5); ALBUMIN/GLOBULIN RATIO 1.4 (1.0-2.2); ALKALINE PHOSPHATASE 91 IU/L (42-121); ALT ALANINE AMINOTRANSFERASE 26 IU/L (10-60); AST ASPARTATE AMINOTRANSFERASE 25 IU/L (10-42); BILIRUBIN,TOTAL 0.5 mg/dL (0.2-1.0); BUN - BLOOD UREA NITROGEN 19 mg/dL (6-20); CALCIUM 9.9 mg/dL (8.5-10.3); CARBON DIOXIDE - CO2 28 mmol/L (21-32); CHLORIDE 102 mmol/L (101-111); CHOL/HDL RATIO 3.9 (<4.4); CHOLESTEROL 205 mg/dL; CREATININE 0.8 mg/dL (0.4-1.0); GFR - MDRD 71 (>89); GLUCOSE 113 mg/dL (70-100); HDL CHOLESTEROL 53 mg/dL; LDL CHOLESTEROL,CALCULATED 99 mg/dL; LDL/HDL RATIO 1.9 (<4.4); POTASSIUM 4.3 mmol/L (3.5-5.0); SODIUM 139 mmol/L (135-145); TOTAL PROTEIN 7.4 g/dL (6.7-8.2); TRIGLYCERIDES 263 mg/dL; VLDL CHOLESTEROL 53 mg/dL
== END 2022-09-17 08:47 | disposition home or self-care (01) ==
LOC: LAB 08:46
PROVIDERS: ATTEND Physician Assistant Medical
DX: E78.5 Hyperlipidemia, unspecified (principal)
CPT/HCPCS: 36415; 80053; 80061; 83721

== ENCOUNTER 2022-10-21 08:17 | Outpatient (CLI) | payer OTHER ==
--- NOTE | 2022-10-24 11:44 | Mammography Report ---
BILATERAL DIGITAL SCREENING MAMMOGRAM 3D/2D: 10/21/2022 CLINICAL: Routine screening. Comparison is made to exams dated: 10/07/2021 mammogram, 01/10/2020 mammogram, and 11/26/2018 mammogram - [facility]. There are scattered areas of fibroglandular density in both breasts (category b / 25%-50% glandular t issue). No significant masses, calcifications, or other findings are seen in either breast. There has been no significant interval change. IMPRESSION: NEGATIVE There is no mammographic evidence of malignancy. A 1 year screening mammogram is recommended. Based on the Tyrer Cuzick model (a risk assessment model) the patients lifetime risk is 4.2% and her 10 year risk is 2.3%. According to the ACR, ACS, and NCCN guidelines, an annual breast MRI exam cyndee g with mammogram is recommended if the patients lifetime risk is 20% or greater. This exam was interpreted at Station ID: [id number]. NOTE: For mammograms, a report in lay terms will be sent to the patient. Approximately 15% of breast malignancies will not be visualized mammographically. In the management of a palpable breast mass, a negative mammogram must not discourage biopsy of a clinically suspicious lesion. Electronically Signed By: Alban Soares M.D., jr/mary:10/21/2022 10:38:15 ACR BI-RADS Category 1: Negative 3341F PARENCHYMAL PATTERN: (A) - The breast(s) demonstrate(s) scattered fibroglandular densities. BI-RADS CATEGORY: (1) - 1 RECOMMENDATION: (ANNUAL) - Recommend routine annual screening mammography. [id number] 1 year screening LATERALITY: (B)
== END 2022-10-21 08:18 | disposition home or self-care (01) ==
LOC: DI 08:17
DX: Z12.31 Encounter for screening mammogram for malignant neoplasm of breast (principal)

== ENCOUNTER 2022-11-18 15:52 | Outpatient (CLI) | payer OTHER ==
--- NOTE | 2022-11-18 16:58 | SLEEP CARE CONSULTATION ---
Information from patient questionnaire entered by Katharina Brown. I have reviewed and concur with the information entered by Katharina Brown. This document represents the service I personally performed and the decisions made by me, Rosanna Valdovinos ARNP. History of Present Illness Service Date and Time: 11/18/2022 1552 Reason for Visit: New patient Chief Complaint: reports: Snoring, Observed pauses in breathing Date of Onset: 15YRS OR SO Usual bedtime: 10PM Time it takes to fall asleep: 10-20MIN Snores at night: Yes Observed to quit breathing while asleep: Yes Sleeps alone due to snoring: Yes Number of times waking at night: VARIES Reasons for waking at night: reports: Snoring, Pain, Bathroom, Other (CAN'T SWALLOW DRY MOUTH AND THROAT ) Toss, Turn, or Twitch while sleeping: No Recalls having dreams: Yes ( ) Usually gets out of bed at: 6-8AM Feels refreshed in the morning: Yes Morning headache: No Sleepy or fatigued during the day: Yes Ever fallen asleep while driving: No Takes day naps: No Dreams during day naps: No Prior sleep studies: Yes Year and Where: [facility] 2006 Additional HPI information: CLEMENTE MANTILLA was previously diagnosed to have severe, AHI 34.8, obstructive sleep apnea-hypopnea syndrome and comes in today to establish care for BIPAP therapy. The sleep study we have today is dated 04/04/06 and showed the severe [place]. She is currently on a BIPAP 24 cmH2O with pressure support 8 cmH2O and IPAP 12 cmH2O with pressure support at 4 cmH2O. - Parasomnia Symptoms Ever been unable to move upon waking from sleep: No Walks in sleep: No Talks in sleep: Yes Ever acted out dreams in sleep: No Ever felt weak in the knees when startled or emotional: No Bothered by creepy, crawly, restless sensations in legs: No Problems with memory or concentration: No CPAP Compliance Data - Data Reviewed with Patient Average duration of nightly device use: 7 hours 44 minutes Compliance rate %: 93.3 (2930 days used) Current pressure setting (cmH2O): 25/12 with pressure support 8/4 Average residual AHI: 2.5 Central apnea: 1.1 Obstructive apnea: 0.6 Hypopnea: 0.8 Average large leak: 51 minutes 54 secs Compliance data discussion: She is using [employer] for her supplies. She has gotten a replacement machine from [employer] of her [employer] BIPAP. She is using a full face mask, ResMed AirFit F10 for her. She has a back up mask if needed. Subjective Patient concerns: reports: dry mouth, nose, throat (wakes up with very dry mouth and throat), other (redness on neck from tightening her mask headgear on head). denies: aerophagia, mask discomfort, air blowing in eyes, mask leak noise, condensation in mask/hose, nasal congestion, epistaxis Observed to snore while using device: No Current pressure setting perceived as: comfortable On therapy, patient: reports: sleeping better, awakening more refreshed, being more awake and alert during the day, more rested overall. 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 Patient is and lives in [place]. Have you smoked in the past 12 months: No Alcohol use: No Caffeine use: Yes Caffeine amount and frequency: RARELY Family History Family history of sleep disordered breathing: No Allergies and Home Medications Known drug allergies: No Drug allergies reviewed: Yes (penicillin) Home medication list reviewed: Yes (as listed in EMR) Review of Systems Weight gain over past 5 years: 20 Cardiovascular: denies: high blood pressure Gastrointestinal: reports: heartburn, other (IBS) Neurological: denies: headaches Psychiatric: reports: anxiety, depression Ear/Nose/Throat: reports: dry mouth/throat, tonsillectomy, other (POST NASAL DRIP) Endocrine: denies: thyroid disease Immunologic: reports: rash Physical Exam Vital signs obtained and entered by: KATHARINA Quinones MA Blood Pressure: 126/72 (LEFT ARM) Cuff size: regular Heart Rate: 79 O2 Saturation: 97 Height: 5 ft Weight: 180 lb 12.8 oz Body Mass Index: 35.3 BMI Classification: Obese Neck circumference: 18.25 Heart: regular rate and rhythm Lungs: clear bilaterally Impression and Plan 1. Obstructive Sleep Apnea-Hypopnea Syndrome, severe, with good treatment compliance and good apnea control. On BIPAP therapy, the patient has better sleep quality and is more rested overall. Patient is establishing care after her last sleep provider office closed down. She states they were going to order a new sleep study because she has breakthrough snoring when she uses her BiPAP. Her BiPAP is set at 24/12 with pressure support of 8/4. She states she has had to move into her guest bedroom because she is snoring through the mask when using her BiPAP machine and this disturbs her 's sleep. I will order a PSG since her last known sleep study was in 2009. We can get a new baseline and see if her sleep apnea severity has changed. Patient's apnea severity and rationale for treatment to reduce apnea, improve sleep quality and reduce cardiovascular and cerebrovascular events was reviewed. I also reviewed the benefit of consistent device use of BIPAP for gastric reflux, depression, anxiety and fibromyalgia. 2. Obesity, unspecified. Currently patients BMI is 35.3. Obesity increases the risk of apnea, BIPAP pressure requirements and overall health risks especially cardiovascular and diabetes. Thus patient is advised to lose weight. * Continue BIPAP pressure at 24/12 with pressure support 8/4 cmH2O * Polysomnography * Notify me if snoring with mask or feeling that the pressure is too much or too little * Attempt to lose weight * Call this office if any problems using BIPAP * Return for follow up after sleep study, or sooner if concerns arise Counseling Topics: Spare mask, Weight loss health impact Visit Type: In Office Time Spent with Patient (minutes): 35 Provider Statement: I spent 100% of the Face to Face Visit with the patient with greater than 50% spent counseling the patient and coordination of care.
[2022-11-18 17:04] VITALS: BP 126/72
== END 2022-11-18 15:53 | disposition home or self-care (01) ==
LOC: SC 15:52
PROVIDERS: ATTEND Nurse Practitioner Family
DX: G47.33 Obstructive sleep apnea (adult) (pediatric) (principal); E66.9 Obesity, unspecified; Z68.35 Body mass index [BMI] 35.0-35.9, adult
CPT/HCPCS: 99203; 99212

== ENCOUNTER 2023-05-12 09:38 | Outpatient (CLI) | payer OTHER ==
[2023-05-12 09:58] LABS: ALBUMIN 4.1 g/dL (3.2-5.5); ALBUMIN/GLOBULIN RATIO 1.5 (1.0-2.2); BILIRUBIN,TOTAL 0.4 mg/dL (0.2-1.0); CALCIUM 9.3 mg/dL (8.5-10.3); TOTAL PROTEIN 6.9 g/dL (6.7-8.2)
[2023-05-12 10:02] LABS: ESTIMATED AVERAGE GLUCOSE 117 mg/dL (70-100); HEMOGLOBIN A1c% 5.7 % (4.27-6.07)
== END 2023-05-12 09:39 | disposition home or self-care (01) ==
LOC: LAB 09:38
PROVIDERS: ATTEND Physician Assistant Medical
DX: R73.9 Hyperglycemia, unspecified (principal)
CPT/HCPCS: 36415; 80053; 83036

== ENCOUNTER 2023-07-07 09:41 | Outpatient (CLI) | payer OTHER ==
--- NOTE | 2023-07-07 12:17 | DEXA Report ---
PROCEDURE: Dexa Spine and/or Hip INDICATIONS: POST MENOPAUSAL TECHNIQUE: Dual energy x-ray absorptiometry (DEXA) was performed in the regions detailed below. COMPARISON: 12/17/2020 FINDINGS: Lumbar Spine: Bone Mineral Density 1.003 g/cm/cm,T score -1.5. Previously -1.2 Left Femoral Neck: Bone Mineral Density 0.766 g/cm/cm, T score -2.0. Previously -1.3 Left Hip: Bone Mineral Density 0.871 g/cm/cm,T score -1.1. Previously -0.9 (T score greater or equal to -1.0: NORMAL) (T score from -1.1 to -2.4: OSTEOPENIA) (T score less than or equal to -2.5 to: OSTEOPOROSIS) IMPRESSION: Worsening osteopenia Patients with diagnosis of osteoporosis or osteopenia should have regular bone mineral density assess ment. For those eligible for Medicare, routine testing is allowed once every 2 years. Testing frequ ency can be increased for patients who have rapidly progressing disease or for those who are receivin g medical therapy to restore bone mass. Reviewed by: Khanh Silva MD on 07/07/2023 11:16 AM ALETHEA Approved by: Khanh Silva MD on 07/07/2023 11:16 AM ALETHEA Station ID: [id number]
== END 2023-07-07 09:42 | disposition home or self-care (01) ==
LOC: DI 09:41
PROVIDERS: ATTEND Physician Assistant Medical
DX: Z78.0 Asymptomatic menopausal state (principal); M85.80 Other specified disorders of bone density and structure, unspecified site

== ENCOUNTER 2023-11-03 07:43 | Outpatient (CLI) | payer OTHER ==
[2023-11-03 07:53] LABS: BASOPHILS # (AUTO) 0.1 10^3/uL (0.0-0.1); BASOPHILS % (AUTO) 0.6 %; EOSINOPHILS # (AUTO) 0.3 10^3/uL (0.0-0.7); EOSINOPHILS % (AUTO) 3.7 %; HCT - HEMATOCRIT 36.5 % (37.0-47.0); LYMPHOCYTES # (AUTO) 2.7 10^3/uL (1.5-3.5); LYMPHOCYTES % (AUTO) 33.5 %; MEAN CORPUSCULAR HEMOGLOBIN 30.2 pg (27.0-31.0); MEAN CORPUSCULAR HGB CONC 32.9 g/dL (32.0-36.0); MEAN CORPUSCULAR VOLUME 91.7 fL (81.0-99.0); MONOCYTES # (AUTO) 0.7 10^3/uL (0.0-1.0); MONOCYTES % (AUTO) 8.4 %; NEUTROPHILS # (AUTO) 4.3 10^3/uL (1.5-6.6); NEUTROPHILS % (AUTO) 53.2 %; PLT - PLATELET COUNT 289 10^3/uL (130-450); RED BLOOD COUNT 3.98 10^6/uL (4.20-5.40); RED CELL DISTRIBUTION WIDTH 13.1 % (12.0-15.0); WHITE BLOOD COUNT 8.1 x10^3/uL (4.8-10.8)
[2023-11-03 08:11] LABS: ALBUMIN 4.4 g/dL (3.2-5.5); ALBUMIN/GLOBULIN RATIO 2.2 (1.0-2.2); ALKALINE PHOSPHATASE 80 IU/L (42-121); ALT ALANINE AMINOTRANSFERASE 19 IU/L (10-60); AST ASPARTATE AMINOTRANSFERASE 18 IU/L (10-42); BILIRUBIN,TOTAL 0.3 mg/dL (0.2-1.0); BUN - BLOOD UREA NITROGEN 20 mg/dL (6-20); CALCIUM 9.8 mg/dL (8.5-10.3); CARBON DIOXIDE - CO2 29 mmol/L (21-32); CHLORIDE 104 mmol/L (101-111); CHOL/HDL RATIO 3.8 (<4.4); CHOLESTEROL 185 mg/dL; CREATININE 0.9 mg/dL (0.6-1.3); GFR - MDRD 62 (>89); GLUCOSE 116 mg/dL (74-104); HDL CHOLESTEROL 49 mg/dL; LDL CHOLESTEROL,CALCULATED 79 mg/dL; LDL/HDL RATIO 1.6 (<4.4); POTASSIUM 4.1 mmol/L (3.5-4.5); SODIUM 139 mmol/L (135-145); TOTAL PROTEIN 6.4 g/dL (6.4-8.9); TRIGLYCERIDES 284 mg/dL (48-352); VLDL CHOLESTEROL 57 mg/dL
[2023-11-03 08:25] LABS: THYROID STIMULATING HORMONE 1.68 uIU/mL (0.34-5.60)
[2023-11-03 11:35] LABS: ESTIMATED AVERAGE GLUCOSE 120 mg/dL (70-100); HEMOGLOBIN A1c% 5.8 % (4.27-6.07)
== END 2023-11-03 07:44 | disposition home or self-care (01) ==
LOC: LAB 07:43
PROVIDERS: ATTEND Physician Assistant Medical
DX: Z00.00 Encounter for general adult medical examination without abnormal findings (principal); R73.9 Hyperglycemia, unspecified; E78.5 Hyperlipidemia, unspecified
CPT/HCPCS: 36415; 80053; 80061; 83036; 83721; 84443; 85025

== ENCOUNTER 2023-11-17 12:54 | Outpatient (CLI) | payer OTHER ==
--- NOTE | 2023-11-20 11:52 | Mammography Report ---
BILATERAL DIGITAL SCREENING MAMMOGRAM 3D/2D: 11/17/2023 CLINICAL: Routine screening. Comparison is made to exams dated: 10/21/2022 mammogram, 10/07/2021 mammogram, 01/10/2020 mammogram, an d 11/26/2018 mammogram - [facility]. There are scattered areas of fibroglandular density in both breasts (category b / 25%-50% glandular t issue). No significant masses, calcifications, or other findings are seen in either breast. There has been no significant interval change. IMPRESSION: NEGATIVE There is no mammographic evidence of malignancy. A 1 year screening mammogram is recommended. Based on the Tyrer Cuzick model (a risk assessment model) the patients lifetime risk is 4.0% and her 10 year risk is 2.4%. According to the ACR, ACS, and NCCN guidelines, an annual breast MRI exam cyndee g with mammogram is recommended if the patients lifetime risk is 20% or greater. This exam was interpreted at Station ID: [id number]. NOTE: For mammograms, a report in lay terms will be sent to the patient. Approximately 15% of breast malignancies will not be visualized mammographically. In the management of a palpable breast mass, a negative mammogram must not discourage biopsy of a clinically suspicious lesion. Electronically Signed By: Andriy ruiz/mary:11/17/2023 17:31:14 letter sent: No_Letter ACR BI-RADS Category 1: Negative 3341F PARENCHYMAL PATTERN: (A) - The breast(s) demonstrate(s) scattered fibroglandular densities. BI-RADS CATEGORY: (1) - 1 Mammogram [id number] 1 year screening LATERALITY: (B)
== END 2023-11-17 12:55 | disposition home or self-care (01) ==
LOC: DI 12:54
DX: Z12.31 Encounter for screening mammogram for malignant neoplasm of breast (principal); R92.323 Mammographic fibroglandular density, bilateral breasts

== ENCOUNTER 2023-12-30 09:34 | Outpatient (CLI) | payer OTHER ==
[2023-12-30 10:22] LABS: FERRITIN 49.3 ng/mL (11.0-306.8)
== END 2023-12-30 09:35 | disposition home or self-care (01) ==
LOC: LAB 09:34
PROVIDERS: ATTEND Nurse Practitioner
DX: R25.8 Other abnormal involuntary movements (principal); E83.10 Disorder of iron metabolism, unspecified
CPT/HCPCS: 36415; 82728; 83540; 84466

== ENCOUNTER 2024-03-22 13:08 | Outpatient (CLI) | payer OTHER | END 2024-03-22 13:09 | disposition home or self-care (01) | LOC: LAB.N 13:08 | PROVIDERS: ATTEND Internal Medicine | DX: R19.8 Other specified symptoms and signs involving the digestive system and abdomen (principal) | CPT/HCPCS: 81599 ==

== ENCOUNTER 2024-04-18 18:53 | Outpatient (CLI) | payer OTHER ==
--- NOTE | 2024-04-18 21:19 | XRAY Report ---
PROCEDURE: Foot 1-2V RT INDICATIONS: OSTEOARTHRITIS OF RIGHT FOOT TECHNIQUE: 2 views of the foot were acquired. COMPARISON: None. FINDINGS: Bones: No acute fractures or dislocations. No suspicious bony lesions. Scattered degenerative beckham ges are seen at the interphalangeal joints of the toes. Mild 1st metatarsophalangeal osteoarthrosis. Small plantar calcaneal enthesophyte. Soft tissues: No suspicious soft tissue calcifications. IMPRESSION: 1.Mild forefoot osteoarthrosis. 2.Calcaneal enthesopathy. Reviewed by: Gonzales Wolf MD on 04/18/2024 9:18 PM PDT Approved by: Gonzales Wolf MD on 04/18/2024 9:18 PM PDT Station ID: [id number]
== END 2024-04-18 18:54 | disposition home or self-care (01) ==
LOC: DI 18:53
PROVIDERS: ATTEND Physician Assistant
DX: M19.071 Primary osteoarthritis, right ankle and foot (principal); M77.31 Calcaneal spur, right foot
CPT/HCPCS: 36415; 84550